=== PATIENT | male | born 1950 | race Hispanic/Latino ===

== ENCOUNTER → 2025-05-15 | Outpatient (CLI) | payer OTHER ==
--- NOTE | 2025-05-15 21:04 | HMCIMG ---
EXAM: CR LUMBAR SPINE, 3 VIEWSCLINICAL HISTORY: Lumbar spondylosis.COMPARISON: None providedTECHNIQUE: Three views of the lumbar spine were obtained.FINDINGS: Normal vertebral heights and disc spaces are noted. No fracture. No fuad or retrolisthesis noted. There is preservation of the normal lumbar lordosis. Multilevel degenerative changes with multilevel marginal osteophytes and bridging osteophytes at L3-L4 and L4-L5 levels. Facet arthropathy and degenerative changes are present at the L5-S1 level. Aortic atherosclerosis. IMPRESSION: * Lumbar spondylosis: findings are most pronounced at L3-L4 and L4-L5, with bridging osteophytes at these levels. * Facet arthropathy at L5-S1. * Normal vertebral body heights and disc spaces without anterolisthesis. /[place]
== END | disposition home or self-care (01) ==
LOC: RAH 11:08
PROVIDERS: ATTEND Family Medicine
DX: M47.817 Spondylosis without myelopathy or radiculopathy, lumbosacral region (principal); M47.816 Spondylosis without myelopathy or radiculopathy, lumbar region; M25.78 Osteophyte, vertebrae; I70.0 Atherosclerosis of aorta
CPT/HCPCS: 72100